=== PATIENT | female | born 1985 ===

== ENCOUNTER 2018-03-23 12:30 | Emergency (ER) | payer OTHER ==
[~2018-03-23] VITALS: Ht 165.1 cm; Wt 63.5 kg
== END 2018-03-23 14:58 | disposition home or self-care (01) ==
LOC: ER 12:30
DX: S13.4XXA Sprain of ligaments of cervical spine, initial encounter (principal); V49.9XXA Car occupant (driver) (passenger) injured in unspecified traffic accident, initial encounter; Y93.89 Activity, other specified; Y92.488 Other paved roadways as the place of occurrence of the external cause; Y99.8 Other external cause status